=== PATIENT | male | born 2000 | race Caucasian/White ===

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

== ENCOUNTER 2021-01-30 20:23 | Emergency (ER) | payer MEDICAID, OTHER ==
[~2021-01-30] VITALS: Ht 167.6 cm; Wt 70.8 kg
[~2021-01-30 20:23] MED LIST: DIPH25TA53 PO; PRED20TA5 PO
[2021-01-30 20:46] VITALS: BP 115/49
--- NOTE | 2021-01-30 21:24 | NUR ---
PT AMBULATED FROM ER CHAIR A TO ER BED 05 UNASSISTED.
[2021-01-30] MEDS ORDERED: FAMOTIDINE 20 MG/2 ML VIAL IVP ONE (21:30)
[2021-01-30] MEDS ORDERED: DEXAMETHASONE 10 MG/ML VIAL IVP ONE (21:30)
[2021-01-30] MEDS ORDERED: EPINEPHrine 1 MG/ML AMP IM ONE (21:30)
[2021-01-30] MEDS ORDERED: diphenhydrAMINE 50 MG/ML VIAL IVP ONE (21:30)
--- NOTE | 2021-01-30 21:30 | NUR ---
PT. IS A 20 Y/O MALE THAT CAME INTO ED WITH C/O OF ALLERGIC REACTION. PT. STATES "I AM ITCHING, I FEEL LIKE MY THROAT IS CLOSING. THIS HAS HAPPENED TWICE" DENIES EATING NEW FOOD OR BEING EXPOSED TO NEW SUBSTANCE. GENERALIZED SKIN REDDENING WITH URTICARIA. PT. STATES HE WORKS AT AN [email or web address] BUT DOES NOT KNOW WHAT HE IS ALLERGIC TO. PT. STATES THAT AN INSTANCE LIKE TODAY HAS HAPPENED BEFORE TO HIM. MED HX: ASTHMA ALLERGIES: NKA
[2021-01-30] MEDS ORDERED: PRED10TA99 PO (23:12)
[2021-01-30] MEDS ORDERED: FEXO180T82 PO (23:12)
[2021-01-30 23:17] VITALS: BP 116/82
--- NOTE | 2021-01-30 23:17 | NUR ---
Patient discharged with v/s stable. Written and verbal after care instructions given and explained. Patient alert, oriented and verbalized understanding of instructions. Ambulatory with steady gait. All questions addressed prior to discharge. ID band removed. Patient advised to follow up with PMD. Rx of fexofenadine and prednisone given. Patient educated on indication of medication including possible reaction and side effects. Opportunity to ask questions provided and answered.
== END 2021-01-30 21:24 | disposition home or self-care (01) ==
LOC: MED 20:23
DX: T78.40XA Allergy, unspecified, initial encounter (principal); X58.XXXA Exposure to other specified factors, initial encounter
CPT/HCPCS: 96372; 96374; 96375; 99284; J0171; J1100; J1200; J3490

== ENCOUNTER 2021-04-20 10:44 | Emergency (ER) | payer MEDICAID, OTHER ==
[~2021-04-20] VITALS: Ht 167.6 cm; Wt 73.0 kg
[~2021-04-20 10:44] MED LIST changes: +FEXO180T82 PO; +PRED10TA99 PO
[2021-04-20 10:58] VITALS: BP 124/59
--- NOTE | 2021-04-20 11:06 | NUR ---
ermd assessing pt in triage at this time. jarvis swabbed
--- NOTE | 2021-04-20 11:14 | NUR ---
pt swabbed for influenza at this time
--- NOTE | 2021-04-20 14:39 | NUR ---
NO NURSING INTERVENTIONS PROVIDED
--- NOTE | 2021-04-20 14:43 | NUR ---
PATIENT LEFT FACILITLY WITHOUT DISCHARGE WORK, DISCHARGE INSTRUCTIONS NOT GIVEN TO PATIENT. STACY ASENCIO NOTIFIED.
== END 2021-04-20 14:43 | disposition home or self-care (01) ==
LOC: MED 10:44
DX: B34.9 Viral infection, unspecified (principal); Z20.822 Contact with and (suspected) exposure to COVID-19
CPT/HCPCS: 87804; 99283

== ENCOUNTER 2022-04-19 08:55 | Emergency (ER) | payer OTHER ==
[~2022-04-19] VITALS: Ht 167.6 cm; Wt 79.4 kg
[2022-04-19 09:02] VITALS: BP 101/66
--- NOTE | 2022-04-19 09:10 | NUR ---
PT AMB TO BED 7.
--- NOTE | 2022-04-19 09:19 | NUR ---
pt swabbed for covid(jarvis) and flu. walked and handed to lab
--- NOTE | 2022-04-19 09:20 | NUR ---
MD PHELPS AT BEDSIDE FOR EVALUATION
[2022-04-19] MEDS ORDERED: KETOROLAC 15 MG/ML VIAL IM ONE (09:25)
[2022-04-19] MEDS ORDERED: ACETAMINOPHEN 325 MG TAB PO ONE (09:25)
[2022-04-19] MEDS ORDERED: DEXAMETHASONE 4 MG TAB PO ONE (09:25)
--- NOTE | 2022-04-19 09:25 | NUR ---
21YO MALE PT C/O INCREASED SOB AND N/V X3-BLOOD XYESTERDAY. CHEST PAIN ON COUGH, MOIST COUGH PRESENT. REPORTS CONGESTION, HEADACHE, CHILLS AND FEVER X5DAYS W/ RELIEF AFTER TYLENOL. STATES BEING OUT OF ALBUTEROL INHALER FOR THE PAST YEAR DUE TO NOT SEEING PCP. MARILUZ CLEAR LUNG SOUNDS. +FAMILY SICK AT HOME W/ S/S. PT AAOX4, RESPIRATIONS EVEN AND UNLABORED. ON SHEET METAL ERECTOR. HOB RAISED. HX:ASTHMA NKA
--- NOTE | 2022-04-19 09:30 | NUR ---
XRAY AT BEDSIDE
[2022-04-19] MEDS ORDERED: ALBU0.0912 IH (10:11)
--- NOTE | 2022-04-19 10:14 | NUR ---
labs called back, states they re scanned the flu a&b. called at 1003, stated flu a positive. called back 1015 states flu a&b negative, ermd made aware
[2022-04-19] MEDS ORDERED: PRON INH (10:28)
--- NOTE | 2022-04-19 10:29 | NUR ---
Patient discharged with v/s stable. Written and verbal after care instructions UPPER RESPIRATORY INFECTION AND VIRAL ILLNESS given and explained. Patient alert, oriented and verbalized understanding of instructions. Ambulatory with steady gait. All questions addressed prior to discharge. ID band removed. Patient advised to follow up with PMD. Rx of ALBUTEROL AND NEBULIZER given. . Opportunity to ask questions provided and answered.
--- NOTE | 2022-04-19 10:30 | NUR ---
The patient's care was reviewed and supervised by Eugenie Leija, RN, RN.
== END 2022-04-19 10:29 | disposition home or self-care (01) ==
LOC: MED 08:55
DX: J98.01 Acute bronchospasm (principal); Z20.822 Contact with and (suspected) exposure to COVID-19; J06.9 Acute upper respiratory infection, unspecified; R05.9 Cough, unspecified; R50.9 Fever, unspecified; R53.83 Other fatigue; R68.83 Chills (without fever); R51.9 Headache, unspecified; J45.909 Unspecified asthma, uncomplicated; Z79.899 Other long term (current) drug therapy
CPT/HCPCS: 71045; 87426; 87804; 96372; 99284; J1885; Q0092